=== PATIENT | female | born 1980 | race Caucasian/White ===

== ENCOUNTER 2018-03-15 00:17 | Emergency (ER) | payer OTHER ==
[~2018-03-15] VITALS: Ht 175.3 cm; Wt 74.8 kg
[~2018-03-15 00:17] MED LIST: CLINDAMYCIN HC300 MG PO; DOXYCYCLINE HY100 MG PO; FLAGYL500 MG PO; NAPROSYN375 MG PO; NORCO 5-325 TA1 EACH PO; PROVERA10 MG PO; SPRINTEC1 EACH PO
[2018-03-15] MEDS ORDERED: FIORINAL 50-321 EACH PO (00:49)
== END 2018-03-15 01:41 | disposition home or self-care (01) ==
LOC: ED 00:17
DX: G43.909 Migraine, unspecified, not intractable, without status migrainosus (principal); F17.200 Nicotine dependence, unspecified, uncomplicated; Z91.038 Other insect allergy status; Z88.0 Allergy status to penicillin; Z88.8 Allergy status to other drugs, medicaments and biological substances
CPT/HCPCS: 96374; 96375; 99283; J1200; J1885; J2765

== ENCOUNTER 2019-11-24 18:02 | Emergency (ER) | payer SELFPAY ==
[~2019-11-24] VITALS: Ht 175.3 cm; Wt 74.8 kg
[~2019-11-24 18:02] MED LIST changes: +FIORINAL 50-321 EACH PO; +KEFLEX500 MG PO
[2019-11-24] MEDS ORDERED: DOXYCYCLINE HY100 MG PO (18:51)
== END 2019-11-24 19:00 | disposition home or self-care (01) ==
LOC: ED 18:02
DX: J20.9 Acute bronchitis, unspecified (principal); F17.200 Nicotine dependence, unspecified, uncomplicated; Z88.0 Allergy status to penicillin; Z88.8 Allergy status to other drugs, medicaments and biological substances; Z91.030 Bee allergy status
CPT/HCPCS: 99283

== ENCOUNTER 2021-12-25 20:19 | Emergency (ER) | payer OTHER ==
[~2021-12-25] VITALS: Ht 175.3 cm; Wt 82.2 kg
[~2021-12-25 20:19] MED LIST changes: +NITROFURANTOIN100 MG PO; +SULFAMETHOXAZO1 EAC1 PO
[2021-12-25] MEDS ORDERED: SUMATRIPTAN SUC50 MG PO (20:44)
[2021-12-25] MEDS ORDERED: ACYCLOVIR400 MG (20:46)
== END 2021-12-26 00:38 | disposition home or self-care (01) ==
LOC: ED 20:19
DX: G43.909 Migraine, unspecified, not intractable, without status migrainosus (principal); F17.200 Nicotine dependence, unspecified, uncomplicated; Z91.030 Bee allergy status; Z88.8 Allergy status to other drugs, medicaments and biological substances; Z88.0 Allergy status to penicillin
CPT/HCPCS: 70450; 96374; 96375; 99284-25; J1200; J1885; J2765; J7030

== ENCOUNTER 2024-12-02 23:25 | Emergency (ER) | payer OTHER ==
[~2024-12-02] VITALS: Ht 175.3 cm; Wt 81.6 kg
[~2024-12-02 23:25] MED LIST changes: +ACYCLOVIR400 MG; +BACTRIM DS TAB1 EACH PO; +IMITREX50 MG PO; +PYRIDIUM100 MG PO; +SUMATRIPTAN SUC50 MG PO
[2024-12-02] MEDS ORDERED: diphenhydrAMINE HCL 50 MG/ML VIAL IV ONE (23:45)
[2024-12-02] MEDS ORDERED: KETOROLAC TROMETHAMINE 30 MG/ML VIAL IV ONE (23:45)
[2024-12-02] MEDS ORDERED: METOCLOPRAMIDE HCL 10 MG/2 ML SDV IV ONE (23:45)
[2024-12-02] MEDS ORDERED: SUMAtriptan succinate 6 MG/0.5 ML VIAL SUB-Q ONE (23:45)
[2024-12-02] MEDS ORDERED: SODIUM CHLORIDE 0.9% 500 ML IV PRN (23:45)
[2024-12-03] MEDS ORDERED: ONDANSETRON ODT8 MG PO (00:33)
[2024-12-03] MEDS ORDERED: ONDANSETRON 4 MG HOME.PACK SL ONE (00:45)
[2024-12-03 01:04] VITALS: BP 165/86
== END 2024-12-03 01:08 | disposition home or self-care (01) ==
LOC: ED 23:25
DX: G43.909 Migraine, unspecified, not intractable, without status migrainosus (principal); F17.200 Nicotine dependence, unspecified, uncomplicated; Z88.0 Allergy status to penicillin; Z88.8 Allergy status to other drugs, medicaments and biological substances; Z91.030 Bee allergy status; Z79.899 Other long term (current) drug therapy
CPT/HCPCS: 96374; 96375; 99283-25; A9270; J1200; J1885; J2765; J3030; J7040

== ENCOUNTER 2025-01-10 21:24 | Emergency (ER) | payer OTHER ==
[~2025-01-10] VITALS: Ht 175.3 cm; Wt 85.0 kg
[~2025-01-10 21:24] MED LIST changes: +ONDANSETRON ODT8 MG PO
[2025-01-10] MEDS ORDERED: LEVOTHYROXINE75 MCG PO (21:45)
[2025-01-10] MEDS ORDERED: KETOROLAC TROMETHAMINE 30 MG/ML VIAL IV ONE (22:00)
[2025-01-10] MEDS ORDERED: SUMAtriptan succinate 6 MG/0.5 ML VIAL SUB-Q ONE (22:00)
[2025-01-10] MEDS ORDERED: SODIUM CHLORIDE 0.9% 1,000 ML IV ONE (22:00)
[2025-01-10] MEDS ORDERED: diphenhydrAMINE HCL 50 MG/ML VIAL IV ONE (22:00)
[2025-01-10] MEDS ORDERED: METOCLOPRAMIDE HCL 10 MG/2 ML SDV IV ONE (22:00)
[2025-01-11] VITALS: BP 150/82
== END 2025-01-11 | disposition home or self-care (01) ==
LOC: ED 21:24
DX: G43.909 Migraine, unspecified, not intractable, without status migrainosus (principal); Z79.899 Other long term (current) drug therapy; Z88.0 Allergy status to penicillin; Z91.030 Bee allergy status; Z88.8 Allergy status to other drugs, medicaments and biological substances; F17.200 Nicotine dependence, unspecified, uncomplicated
CPT/HCPCS: 96374; 96375; 99283-25; J1200; J1885; J2765; J3030; J7030

== ENCOUNTER 2025-02-09 06:45 | Emergency (ER) | payer OTHER ==
[~2025-02-09] VITALS: Ht 175.3 cm; Wt 80.5 kg
[~2025-02-09 06:45] MED LIST changes: +LEVOTHYROXINE75 MCG PO
--- OUTSIDE RECORDS SUMMARY | 2025-02-09 06:51 | XMS ---
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 Shanice VISIT COUNT (12 MO.) [address] [facility] (Ramy Mccann) TOTAL 4 NOTE: Visits indicate total known visits. 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 [facility] [place] TYPE: Emergency COMPLAINT: - MIGRAINE DIAGNOSES: - Allergy status to other drugs, medicaments and biological substances - Allergy status to penicillin - Bee allergy status - Headache, unspecified - Migraine, unspecified, not intractable, without status migrainosus - Nicotine dependence, unspecified, uncomplicated - Other prison (current) drug therapy 08/30/2024 21:17 [facility] Ewelina RHODES (Ramy Mccann) TYPE: Emergency DIAGNOSES: - Headache, unspecified - headache - Headache (Adult - New Onset Or New Symptoms) INPATIENT VISIT TRACKING (12 MO.) No inpatient visits to display in this time frame [email or web address]
[2025-02-09] MEDS ORDERED: SUMAtriptan succinate 6 MG/0.5 ML VIAL SUB-Q ONE (07:00)
[2025-02-09] MEDS ORDERED: KETOROLAC TROMETHAMINE 30 MG/ML VIAL IV ONE (07:00)
[2025-02-09] MEDS ORDERED: SODIUM CHLORIDE 0.9% 500 ML IV PRN (07:00)
[2025-02-09] MEDS ORDERED: diphenhydrAMINE HCL 50 MG/ML VIAL IV ONE (07:00)
[2025-02-09] MEDS ORDERED: METOCLOPRAMIDE HCL 10 MG/2 ML SDV IV ONE (07:00)
[2025-02-09] MEDS ORDERED: IMITREX50 MG PO (07:52)
[2025-02-09 08:10] VITALS: BP 131/86
== END 2025-02-09 08:16 | disposition home or self-care (01) ==
LOC: ED 06:45
DX: G43.909 Migraine, unspecified, not intractable, without status migrainosus (principal); F17.200 Nicotine dependence, unspecified, uncomplicated; Z91.038 Other insect allergy status; Z88.0 Allergy status to penicillin; Z88.9 Allergy status to unspecified drugs, medicaments and biological substances
CPT/HCPCS: 96374; 96375; 99283-25; J1200; J1885; J2765; J3030; J7040